=== PATIENT | female | born 1950 ===

== ENCOUNTER 2018-10-07 14:45 | Inpatient (IN) | payer OTHER ==
[~2018-10-07] VITALS: Ht 149.9 cm; Wt 54.4 kg
[2018-10-07] MEDS ORDERED: DEMADEX20 MG (15:50)
[2018-10-07] MEDS ORDERED: ADULT ASPIRIN81 MG (15:51)
[2018-10-07] MEDS ORDERED: TOPROL XL25 M1 (15:51)
[2018-10-07] MEDS ORDERED: VITAMIN C1000 MG (15:51)
[2018-10-07] MEDS ORDERED: GABAPENTIN300 MG (15:52)
[2018-10-07] MEDS ORDERED: HYDRALAZINE HCL50 MG (15:52)
[2018-10-07] MEDS ORDERED: PANADOL EXTRA500 MG (15:53)
[2018-10-07] MEDS ORDERED: ALPHA LIPOIC A600 MG (15:53)
== END 2018-10-10 16:04 | disposition home or self-care (01) | DRG 291 ==
LOC: ER 14:45 → MEDJ 10-08 02:03 → SEC-K 10-08 02:03 → MEDJ 10-08 05:44
PROVIDERS: ADMIT Internal Medicine
PROC: 4A12X4Z Monitoring of Cardiac Electrical Activity, External Approach (ICD-10-PCS; principal; 2018-10-08)
PROC: BT43ZZZ Ultrasonography of Bilateral Kidneys (ICD-10-PCS; 2018-10-08)
PROC: B246ZZZ Ultrasonography of Right and Left Heart (ICD-10-PCS; 2018-10-08)
PROC: BF37ZZZ Magnetic Resonance Imaging (MRI) of Pancreas (ICD-10-PCS; 2018-10-08)
PROC: B44HZZZ Ultrasonography of Bilateral Lower Extremity Arteries (ICD-10-PCS; 2018-10-09)
DX: I13.0 Hypertensive heart and chronic kidney disease with heart failure and stage 1 through stage 4 chronic kidney disease, or unspecified chronic kidney disease (principal); I50.23 Acute on chronic systolic (congestive) heart failure; N18.4 Chronic kidney disease, stage 4 (severe); E87.1 Hypo-osmolality and hyponatremia; N17.8 Other acute kidney failure; K80.51 Calculus of bile duct without cholangitis or cholecystitis with obstruction; K80.18 Calculus of gallbladder with other cholecystitis without obstruction; L03.116 Cellulitis of left lower limb; L03.115 Cellulitis of right lower limb; E78.00 Pure hypercholesterolemia, unspecified; I25.10 Atherosclerotic heart disease of native coronary artery without angina pectoris; E11.65 Type 2 diabetes mellitus with hyperglycemia; E11.22 Type 2 diabetes mellitus with diabetic chronic kidney disease; E11.21 Type 2 diabetes mellitus with diabetic nephropathy; E11.42 Type 2 diabetes mellitus with diabetic polyneuropathy